=== PATIENT | female | born 1955 | race Hispanic/Latino ===

== ENCOUNTER 2017-10-19 07:00 | Day surgery (SDC) | payer OTHER ==
[2017-10-15 12:08] VITALS: BP 154/75
[2017-10-15 12:16] LABS: BASOPHILS % (AUTO) 0.7 % (0.0-5.0); EOSINOPHILS % (AUTO) 1.5 % (0.0-8.0); HEMATOCRIT 35.3 % (36-48); LYMPHOCYTES % (AUTO) 34.5 % (21.0-51.0); MEAN CORPUSCULAR HGB CONC 34.2 g/dL (32.0-36.0); MEAN CORPUSCULAR VOLUME 90.7 fL (79-99); MONOCYTES % (AUTO) 4.7 % (3.0-13.0); NEUTROPHILS % (AUTO) 58.6 % (40.0-77.0); PLATELET COUNT (AUTO) 286 K/uL (130-400); RED BLOOD CELL COUNT(AUTO) 3.89 MIL/uL (4.00-5.50)
[2017-10-15 12:23] LABS: CREATININE 1.1 mg/dL (0.5-1.5); POTASSIUM 3.6 mmol/L (3.5-5.1)
[2017-10-15] MEDS: CEFAZOLIN SODIUM 1 GM VIAL IVP SCH (14:45)
[2017-10-19] VITALS (14 sets, daily range): BP systolic 130–156; BP diastolic 67–85
[~2017-10-19] VITALS: Ht 158.8 cm; Wt 81.6 kg
[~2017-10-19 07:00] MED LIST: HYDR12.530 PO; LACTATED RINGERS 1000ML 1,000 ML IV SCH; METF500T6 PO
[2017-10-19] MEDS ORDERED: SODIUM CHLORIDE 0.9% 1000ML 1,000 ML IV ONE (07:23)
[2017-10-19] MEDS ORDERED: WATER FOR INJECTION,STERILE 20 ML VIAL ONE (07:23)
[2017-10-19] MEDS ORDERED: ISOVUE-370 50ML VIAL IV ONE (08:45)
[2017-10-19] MEDS ORDERED: PROPOFOL 10 MG/ML 20ML VIAL IV ONE (08:58)
[2017-10-19] MEDS ORDERED: LIDOCAINE PF 2% 5ML ABBOJECT ONE (08:58)
[2017-10-19] MEDS ORDERED: NEOSTIGMINE METHYLSULFATE 1MG/ML IV ONE (08:58)
[2017-10-19] MEDS ORDERED: SUCCINYLCHOLINE 200MG/10ML SYR ONE (08:58)
[2017-10-19] MEDS ORDERED: MIDAZOLAM HCL 1 MG/ML 2ML VIAL ONE (08:58)
[2017-10-19] MEDS ORDERED: FENTANYL CITRATE PF 50 MCG/1 ML 2ML VIAL ONE ×2 (08:58→10:23)
[2017-10-19] MEDS ORDERED: DEXAMETHASONE SOD PHOSPHATE 10MG/ML 1ML VIAL ONE (08:58)
[2017-10-19] MEDS ORDERED: ONDANSETRON HCL 4 MG/2 ML VIAL ONE (08:58)
[2017-10-19] MEDS ORDERED: GLYCOPYRROLATE 0.2 MG/ML 5 ML VIAL ONE (08:58)
[2017-10-19] MEDS: CEFAZOLIN SODIUM 1 GM VIAL IVP SCH (09:11)
[2017-10-19] MEDS ORDERED: METHYLENE BLUE 10 MG/ML AMP IJ ONE (09:28)
[2017-10-19] MEDS ORDERED: ACETAMINOPHEN-CODEINE ELIXIR 5 ML UDCUP PO ONE (12:15)
== END 2017-10-19 12:01 | disposition home or self-care (01) ==
LOC: DAH 07:00
PROVIDERS: ATTEND Surgery
DX: N13.1 Hydronephrosis with ureteral stricture, not elsewhere classified (principal); E11.9 Type 2 diabetes mellitus without complications; I10 Essential (primary) hypertension; Z98.890 Other specified postprocedural states; Z80.9 Family history of malignant neoplasm, unspecified
CPT/HCPCS: 36415; 52332; 52342; 74420; 80048; 82948 ×2; 85025; 87088; 87186; A4358; A4649; C1726; C1758; C1769; J0330; J0690; J1100; J2001; J2250; J2405; J2704; J2710; J3010 ×2; J3490; J7030; J7120; Q9967; Q9968

== ENCOUNTER 2017-11-28 18:00 | Emergency (ER) | payer OTHER ==
[~2017-11-28 18:00] MED LIST changes: -LACTATED RINGERS 1000ML 1,000 ML IV SCH
[2017-11-28] MEDS ORDERED: TRAMADOL HCL 50 MG TABLET ONE ×2 (18:27→22:29)
[2017-11-28 18:38] LABS: BASOPHILS % (AUTO) 0.2 % (0.0-5.0); EOSINOPHILS % (AUTO) 0.5 % (0.0-8.0); HEMATOCRIT 31.9 % (36-48); LYMPHOCYTES % (AUTO) 7.3 % (21.0-51.0); MEAN CORPUSCULAR HEMOGLOBIN 30.8 pg (27.0-33.0); MEAN CORPUSCULAR HGB CONC 34.9 g/dL (32.0-36.0); MEAN CORPUSCULAR VOLUME 88.1 fL (79-99); MONOCYTES % (AUTO) 5.5 % (3.0-13.0); NEUTROPHILS % (AUTO) 86.5 % (40.0-77.0); PLATELET COUNT (AUTO) 195 K/uL (130-400); RED BLOOD CELL COUNT(AUTO) 3.62 MIL/uL (4.00-5.50); RED CELL DISTRIBUTION WIDTH 14.5 % (11.0-15.5); WHITE BLOOD COUNT (AUTO) 11.2 K/uL (4.8-10.8)
[2017-11-28 18:54] LABS: INR 0.92 (0.85-1.15); PROTHROMBIN TIME 9.7 SEC (9.6-11.6)
[2017-11-28 19:01] LABS: ALBUMIN 2.8 g/dL (3.5-5.0); BILIRUBIN,TOTAL 0.7 mg/dL (0.2-1.0); CREATININE 6.5 mg/dL (0.5-1.5)
[2017-11-28 19:03] LABS: POTASSIUM 2.8 mmol/L (3.5-5.1)
[2017-11-28] MEDS ORDERED: POTASSIUM BICARB/CIT AC 25 MEQ TABLET.EFF ONE (19:09)
[2017-11-28] MEDS ORDERED: ACETAMINOPHEN EXTRA STRENGTH 500 MG TABLET ONE (19:38)
[2017-11-28 19:40] LABS: APPEARANCE,URINE TURBID (CLEAR); BILIRUBIN,URINE NEGATIVE (NEGATIVE); COLOR,URINE YELLOW (YELLOW); GLUCOSE, URINE (UA) NEGATIVE (NEGATIVE); KETONES,URINE 5 mg/dL (NEGATIVE); LEUKOCYTE ESTERASE ,URINE LARGE (NEGATIVE); NITRATE,URINE NEGATIVE (NEGATIVE); OCCULT BLOOD,URINE LARGE (NEGATIVE); PH,URINE 5.5 (5.0-8.0); PROTEIN,URINE >=300 (NEGATIVE); UROBILINOGEN,URINE 0.2 mg/dL (0.2-1.0)
[2017-11-28 19:59] LABS: WBC,URINE >100 /HPF (0-1)
[2017-11-28 20:01] LABS: BACTERIA,URINE Few /HPF (None Seen); SQUAMOUS EPITHELIAL CELL,UR Rare /LPF (0-2)
[2017-11-28] MEDS ORDERED: SODIUM CHLORIDE 0.9% 1000ML 1,000 ML IV ONE ×2 (20:15→22:27)
[2017-11-28] MEDS ORDERED: CEFTRIAXONE SODIUM 1 GM ONE (20:52)
== END 2017-11-29 01:16 | disposition home or self-care (01) ==
LOC: EDH 18:00
DX: N39.0 Urinary tract infection, site not specified (principal); E86.0 Dehydration; N28.9 Disorder of kidney and ureter, unspecified; E11.9 Type 2 diabetes mellitus without complications
CPT/HCPCS: 36415; 80053; 81001; 82150; 83690; 84484; 85025; 85610; 85730; 93005; 96361; 96374; 99285; J0696; J7030 ×2

== ENCOUNTER 2017-12-03 16:58 | Inpatient (IN) | payer SELFPAY ==
[~2017-12-03] VITALS: Ht 160 cm; Wt 74.5 kg
[2017-12-03 17:32] LABS: BASOPHILS % (AUTO) 0.5 % (0.0-5.0); LYMPHOCYTES % (AUTO) 12.7 % (21.0-51.0); MEAN CORPUSCULAR HEMOGLOBIN 30.5 pg (27.0-33.0); MEAN CORPUSCULAR HGB CONC 34.3 g/dL (32.0-36.0); MEAN CORPUSCULAR VOLUME 88.9 fL (79-99); NEUTROPHILS % (AUTO) 80.8 % (40.0-77.0); PLATELET COUNT (AUTO) 537 K/uL (130-400); RED BLOOD CELL COUNT(AUTO) 3.26 MIL/uL (4.00-5.50); RED CELL DISTRIBUTION WIDTH 14.7 % (11.0-15.5); WHITE BLOOD COUNT (AUTO) 15.2 K/uL (4.8-10.8)
[2017-12-03 17:44] LABS: INR 0.97 (0.85-1.15); PARTIAL THROMBOPLASTIN TIME 31.7 SEC (26.3-35.5); PROTHROMBIN TIME 10.2 SEC (9.6-11.6)
[2017-12-03 17:47] LABS: ALBUMIN 2.8 g/dL (3.5-5.0); BILIRUBIN,TOTAL 0.3 mg/dL (0.2-1.0); CREATININE 3.3 mg/dL (0.5-1.5); TOTAL PROTEIN, SERUM 8.3 g/dL (6.0-8.3)
[2017-12-03 17:59] LABS: POTASSIUM 2.7 mmol/L (3.5-5.1)
[2017-12-03 18:03] LABS: APPEARANCE,URINE Clear (CLEAR); BILIRUBIN,URINE Negative (NEGATIVE); COLOR,URINE Yellow (YELLOW); GLUCOSE, URINE (UA) Negative (NEGATIVE); KETONES,URINE Negative (NEGATIVE); LEUKOCYTE ESTERASE ,URINE Large (NEGATIVE); NITRATE,URINE Negative (NEGATIVE); OCCULT BLOOD,URINE Moderate (NEGATIVE); PH,URINE 6.5 (5.0-8.0); PROTEIN,URINE POS 1+ (NEGATIVE); UROBILINOGEN,URINE 0.2 mg/dL (0.2-1.0)
[2017-12-03] MEDS ORDERED: SODIUM CHLORIDE 0.9% 50 ML IV ONE (18:16)
[2017-12-03] MEDS ORDERED: CEFTRIAXONE SODIUM 1 GM ONE (18:16)
[2017-12-03 18:30] LABS: BACTERIA,URINE Rare /HPF (None Seen)
[2017-12-03] MEDS ORDERED: POTASSIUM CHLORIDE 20 MEQ ERTAB PO ONE ×2 (18:39→22:51)
[2017-12-03] MEDS ORDERED: HYDRALAZINE HCL 20 MG/ML VIAL IV PRN (19:15)
[2017-12-03] MEDS ORDERED: MORPHINE SULFATE 2 MG/ML 1ML SYG IV PRN (19:15)
[2017-12-03] MEDS ORDERED: GLUCAGON 1MG KIT 1 MG ML IM PRN (19:15)
[2017-12-03] MEDS ORDERED: ONDANSETRON HCL 4 MG/2 ML VIAL IV PRN (19:15)
[2017-12-03] MEDS ORDERED: DEXTROSE 50%-WATER 50 ML DISP.SYRIN IV PRN (19:15)
[2017-12-03] MEDS ORDERED: ACETAMINOPHEN 325 MG TAB PO PRN ×2 (19:15)
[2017-12-03] MEDS ORDERED: CEFTRIAXONE 1GM/D5W 50ML 50 ML IV SCH (19:15)
[2017-12-03] MEDS: CEFTRIAXONE SODIUM 1 GM IVP SCH (19:30)
[2017-12-03] MEDS: INSULIN HUMULIN R 100 UNIT/ML 3ML SQ SCH (21:00)
[2017-12-03 21:15] VITALS: BP 113/63
[2017-12-03 23:00] VITALS: BP 103/58
[2017-12-03] MEDS ORDERED: LOSA50TA37 PO (23:01)
[2017-12-03] MEDS ORDERED: METF500T6 PO (23:01)
[2017-12-03] MEDS ORDERED: HYDR12.54 PO (23:01)
[2017-12-03] MEDS ORDERED: BACTSS PO (23:26)
[2017-12-04 03:00] VITALS: BP 102/52
[2017-12-04 03:46] LABS: MEAN CORPUSCULAR HEMOGLOBIN 31.4 pg (27.0-33.0); MEAN CORPUSCULAR HGB CONC 35.9 g/dL (32.0-36.0); MEAN CORPUSCULAR VOLUME 87.7 fL (79-99); PLATELET COUNT (AUTO) 509 K/uL (130-400); RED BLOOD CELL COUNT(AUTO) 2.96 MIL/uL (4.00-5.50); RED CELL DISTRIBUTION WIDTH 14.6 % (11.0-15.5); WHITE BLOOD COUNT (AUTO) 13.8 K/uL (4.8-10.8)
[2017-12-04 04:03] LABS: HEMOGLOBIN A1C 6.6 % (4.0-6.0)
[2017-12-04] MEDS: INSULIN HUMULIN R 100 UNIT/ML 3ML SQ SCH ×4 (07:30→20:51)
[2017-12-04 08:00] VITALS: BP 95/60
[2017-12-04] MEDS: PANTOPRAZOLE SODIUM 40 MG TABLET.DR PO SCH (09:07)
[2017-12-04 11:22] VITALS: BP 103/63
[2017-12-04 15:55] VITALS: BP 114/63
[2017-12-04 19:00] VITALS: BP 108/72
[2017-12-04] MEDS: CEFTRIAXONE SODIUM 1 GM IVP SCH (20:51)
[2017-12-04 23:00] VITALS: BP 105/58
[2017-12-05 03:00] VITALS: BP 102/64
[2017-12-05] MEDS: INSULIN HUMULIN R 100 UNIT/ML 3ML SQ SCH ×2 (06:14→11:18)
[2017-12-05 08:00] VITALS: BP 103/60
[2017-12-05] MEDS: PANTOPRAZOLE SODIUM 40 MG TABLET.DR PO SCH (08:56)
[2017-12-05 11:17] VITALS: BP 110/65
[2017-12-05] MEDS ORDERED: CEFD300C3 PO (14:57)
[2017-12-05 15:28] VITALS: BP 117/76
== END 2017-12-05 15:45 | disposition home or self-care (01) | DRG 690 ==
LOC: EDH 16:58 → EDHIP 16:59 → 3BH 20:52
PROVIDERS: ADMIT Family Medicine; ATTEND Family Medicine
DX: N10 Acute pyelonephritis (principal); N17.0 Acute kidney failure with tubular necrosis; N20.0 Calculus of kidney; E87.5 Hyperkalemia; E11.22 Type 2 diabetes mellitus with diabetic chronic kidney disease; D63.1 Anemia in chronic kidney disease; E66.9 Obesity, unspecified; I12.9 Hypertensive chronic kidney disease with stage 1 through stage 4 chronic kidney disease, or unspecified chronic kidney disease; N18.9 Chronic kidney disease, unspecified; E87.6 Hypokalemia; Z87.440 Personal history of urinary (tract) infections; Z83.3 Family history of diabetes mellitus; Z82.49 Family history of ischemic heart disease and other diseases of the circulatory system
CPT/HCPCS: 36415; 71045; 74176; 80053; 81001; 82948; 83036; 83605; 84443; 84484; 85025; 85027; 85610; 85730; 87040; 87088; 93005; A4218; J0696